=== PATIENT | male | born 1935 | race Caucasian/White ===

== ENCOUNTER → 2021-01-13 10:48 | Outpatient (BNVA) | payer MEDICARE, SELFPAY | PROVIDERS: PCP Internal Medicine; Visit Provider Urology | DX: N31.9 Neuromuscular dysfunction of bladder, unspecified (principal) | CPT/HCPCS: 51798; 81002; 99212 ==

== ENCOUNTER 2022-05-04 11:32 | Outpatient (AMB) | payer MEDICARE, SELFPAY ==
--- NOTE | 2022-05-03 14:38 | A.OFFVIS_ITS ---
Intake Intake Visit Reasons: 1 Year PVR Intake Note: Patient is present for pvr follow up Patient is currently taking finasteride Reports no medication changes Post Void Residual Reports: 120ml Greenhouse Transplanter Required: No Accompanied by: Self / Same As Patient Allergies No Known Allergies Allergy (Verified 05/03/22 14:39) HPI HPI Comments History of Present Illness Details Theron CANNON is a very pleasant male. They are a patient of Dr. Kaiser. They are seen in the office today for the following urologic conditions. - neurogenic bladder Doing well with CIC Needs refill on Levaquin - use for 4-5 days when has infection particularly when fishing in [place] Otherwise well Review in 12 months Neurogenic Bladder: They are here for further management for incomplete emptying neurogenic bladder - tolerating CIC - continue with finasteride Stable. Urinary retention initially found started 2015 Had prostate procedure in 2008 Has been on CIC 4x a day with good effect Occasional UTI. Imaging results 06/27 80 gm prostate, no hydro. Therapeutic plan Keep Abx and specimen cup with slip at home Start levaquin if symptomatic. [facility] Medical History Benign prostatic hyperplasia with lower urinary tract symptoms Feeling of incomplete bladder emptying Hyperlipidemia Neurogenic bladder Vitamin D deficiency Surgical History History of hernia repair History of prostate surgery Review of Systems Const Denies chills and Denies fever(s) Card Reports no additional complaints and Denies syncope Resp Denies cough GI Denies abdominal pain and Denies heartburn Reports as per HPI and Denies change in libido Neuro Denies syncope Psych Denies change in libido Endo Denies change in libido Physical Exam Const General: cooperative, healthy appearing, comfortable and no acute distress Orientation/consciousness: patient oriented x3 HEENT Face and sinus: Yes normal facial exam Mouth: moist mucous membranes Neck Neck: Yes normal visual inspection, Yes full ROM and Yes trachea midline Chest Chest palpation & inspection: normal inspection of the chest Resp Effort & Inspection: normal respiratory effort, able to speak in complete sentences and no respiratory distress GI Inspection: Yes normal to inspection Back/Spine/Pelvis Cervical Spine: normal cervical lordosis Thoracic/Lumbar Spine: thoracic and lumbar spine normal to inspection Skin General skin exam: no rashes or lesions noted Neuro General: patient oriented x3, gait normal, tone normal and moves all extremities Extrem General: Yes normal to inspection and Yes capillary refill normal Office Procedures Post Void Residual Post Residual Void Post Void Residual (PVR): 120 [id number] Void Residual by ultrasound Results AMB Urinalysis, Automated UA Leukoctes 15 Sofia/uL Last Edit by Lacey Rodriguez A on 05/04/22 11:42 UA Nitrite Negative Last Edit by Lacey Rodriguez A on 05/04/22 11:42 UA Urobilinogen 0.2 mg/dL Last Edit by Lacey Rodriguez A on 05/04/22 11:4 2 UA Protein 15 mg/dL Last Edit by Lacey Rodriguez A on 05/04/22 11:42 UA pH 5.5 Last Edit by Lacey Rodriguez A on 05/04/22 11:42 UA Blood 10 Donnell/uL Last Edit by Lacey Rodriguez A on 05/04/22 11:42 UA Specific Bowie 1.030 Last Edit by Lacey Rodriguez [facility] on 05/04/22 11: 42 UA Ketone Negative Last Edit by Lacey Rodriguez A on 05/04/22 11:42 UA Bilirubin 0 mg/dL Last Edit by Lacey Rodriguez [facility] on 05/04/22 11:42 UA Glucose 0 mg/dL Last Edit by Lacey Rodriguez A on 05/04/22 11:42 Results Reviewed Results Reviewed: Laboratory Last Values Urine pH (Auto) 5.5 05/04/22 11:41 Specific Bowie (Auto) 1.030 05/04/22 11:41 Urine Protein (Auto) 15 mg/dL 05/04/22 11:41 Glucose (UA)(Auto) 0 mg/dL 05/04/22 11:41 Urine Ketones (Auto) Negative 05/04/22 11:41 Urine Blood (Auto) 10 Donnell/uL 05/04/22 11:41 Urine Nitrite (Auto) Negative 05/04/22 11:41 Urine Bilirubin (Auto) 0 mg/dL 05/04/22 11:41 Urine Urobilinogen (Auto) 0.2 mg/dL 05/04/22 11:41 Leukocyte Esterase (Auto) 15 Sofia/uL 05/04/22 11:41 Assessment & Plan Assessment & Plan (1) Neurogenic bladder: Code(s): N31.9 - Neuromuscular dysfunction of bladder, unspecified Plan Twelve month follow-up Orders: Orders AMB Urinalysis Automated 05/04/22 Z13.9 - Encounter for screening, unspecified, N31.9 - Neuromuscular dysfunction of bladder, unspecified AMB Post Void Residual by ultrasound 05/04/22 N31.9 - Neuromuscular dysfunction of bladder, unspecified Patient Instructions: Imaging studies, laboratory and physical exam results were discussed and reviewed in detail. No major barriers to patient understanding were identified. An opportunity to ask questions regarding the treatment plan was provided. All questions were answered. The patient expressed understanding and agreement with the above treatment plan. The patient is aware they should contact our office by phone for worsening of their current condition or the appearance of new urologic symptoms. Compliance is encouraged with any medications and followup testing that is ordered. It is a privilege to participate in the urologic care of your patient. If you have any questions or concerns regarding treatment for the above conditions, or other urologic issues, please do not hesitate to contact me. The office telephone contact is [phone]. This note is constructed using voice recognition software. While every effort has been made to ensure accuracy electrical logging operator errors may have been included. Yours sincerely, Dr Vega Ward MD, [facility] - Urology Providers of Expert, Compassionate Care for the Genitourinary System Coding Level of Care Code Est Pt Level 4 (45397) Diagnoses Neurogenic bladder N31.9 CPT Codes Post Residual Void - PVR CPT Code: 79496-[id number] Void Residual by ultrasound ([id number])
== END 2022-05-04 12:20 | disposition home or self-care (01) ==
LOC: HO.HUSH 11:32
PROVIDERS: PCP Internal Medicine; Visit Provider Urology
DX: N31.9 Neuromuscular dysfunction of bladder, unspecified (principal)
CPT/HCPCS: 99213

== ENCOUNTER → 2022-05-04 11:32 | Outpatient (BNVA) | payer MEDICARE, SELFPAY | PROVIDERS: PCP Internal Medicine; Visit Provider Urology | DX: N31.9 Neuromuscular dysfunction of bladder, unspecified (principal) | CPT/HCPCS: 51798; 99212 ==

== ENCOUNTER 2023-05-04 09:21 | Outpatient (AMB) | payer MEDICARE, SELFPAY ==
--- NOTE | 2023-05-04 09:38 | MHC.OFFVIS ---
Intake Intake Visit Reasons: 1 year follow up Intake Note: Patient is present for Follow Up Urology Med: Finasteride Antibiotic Allergy: none Blood Thinner: None Allergies No Known Allergies Allergy (Verified 05/04/23 09:47) Medication List - Last Reconciled 05/04/23 by Vega Ward MD enalapril maleate 10 mg PO DAILY finasteride 5 mg PO DAILY finasteride 5 mg PO DAILY 90 days levetiracetam 750 mg PO BID levofloxacin 250 mg PO DAILY 7 days HPI HPI Comments History of Present Illness Details Theron CANNON is a very pleasant male. He is a patient of Dr. Kaiser. He is seen for the following urologic conditions. - neurogenic bladder Continues to do well with CIC On daily finasteride to allow easier catheterization Levaquin refilled to use when on fishing trips in [place] 12 month follow-up Neurogenic Bladder: They are here for further management for incomplete emptying neurogenic bladder - maintains CIC into the foreseeable future - tolerating CIC - continue with finasteride Stable. Urinary retention initially found started 2015 Had prostate procedure in 2008 Has been on CIC 4x a day with good effect Occasional UTI. Imaging results 06/27 80 gm prostate, no hydro. Therapeutic plan Keep Abx and specimen cup with slip at home Start levaquin if symptomatic. [facility] Medical History Benign prostatic hyperplasia with lower urinary tract symptoms Feeling of incomplete bladder emptying Hyperlipidemia Neurogenic bladder Vitamin D deficiency Surgical History History of hernia repair History of prostate surgery Review of Systems Const Denies chills and Denies fever(s) Card Reports no additional complaints and Denies syncope Resp Denies cough GI Denies abdominal pain and Denies heartburn Reports as per HPI and Denies change in libido Neuro Denies syncope Psych Denies change in libido Endo Denies change in libido Physical Exam Const General: cooperative, healthy appearing, comfortable and no acute distress Orientation/consciousness: patient oriented x3 HEENT Face and sinus: Yes normal facial exam Mouth: moist mucous membranes Neck Neck: Yes normal visual inspection, Yes full ROM and Yes trachea midline Chest Chest palpation & inspection: normal inspection of the chest Resp Effort & Inspection: normal respiratory effort, able to speak in complete sentences and no respiratory distress GI Inspection: Yes normal to inspection Back/Spine/Pelvis Cervical Spine: normal cervical lordosis Thoracic/Lumbar Spine: thoracic and lumbar spine normal to inspection Skin General skin exam: no rashes or lesions noted Neuro General: patient oriented x3, gait normal, tone normal and moves all extremities Extrem General: Yes normal to inspection and Yes capillary refill normal Results AMB Urinalysis, Automated UA Leukoctes 0 Sofia/uL Last Edit by TRACI Null on 05/04/23 09:49 UA Nitrite Negative Last Edit by Lacey Rodriguez A on 05/04/23 09:49 UA Urobilinogen 0.2 mg/dL Last Edit by BRISA NullA on 05/04/23 09:49 UA Protein 0 mg/dL Last Edit by Lacey Rodriguez A on 05/04/23 09:49 UA pH 5.5 Last Edit by Lacey Rodriguez A on 05/04/23 09:49 UA Blood 0 Donnell/uL Last Edit by Lacey Rodriguez Soha on 05/04/23 09:49 UA Specific Randolph 1.025 Last Edit by Lacey Rodriguez A on 05/04/23 09:49 UA Ketone Negative Last Edit by TRACI Null on 05/04/23 09:49 UA Bilirubin 0 mg/dL Last Edit by Lacey Rodriguez A on 05/04/23 09:49 UA Glucose 0 mg/dL Last Edit by Lacey Rodriguez A on 05/04/23 09:49 Results Reviewed Results Reviewed: Laboratory Last Values Urine pH (Auto) 5.5 05/04/23 09:48 Specific Randolph (Auto) 1.025 05/04/23 09:48 Urine Protein (Auto) 0 mg/dL 05/04/23 09:48 Glucose (UA)(Auto) 0 mg/dL 05/04/23 09:48 Urine Ketones (Auto) Negative 05/04/23 09:48 Urine Blood (Auto) 0 Donnell/uL 05/04/23 09:48 Urine Nitrite (Auto) Negative 05/04/23 09:48 Urine Bilirubin (Auto) 0 mg/dL 05/04/23 09:48 Urine Urobilinogen (Auto) 0.2 mg/dL 05/04/23 09:48 Leukocyte Esterase (Auto) 0 Sofia/uL 05/04/23 09:48 Assessment & Plan Assessment & Plan (1) Neurogenic bladder: Code(s): N31.9 - Neuromuscular dysfunction of bladder, unspecified Plan Twelve month follow-up Orders: Orders AMB Urinalysis Automated Today Z13.9 - Encounter for screening, unspecified Medications: New levofloxacin 250 mg PO DAILY 7 tabs 0RF 7 days Refilled finasteride 5 mg PO DAILY 90 tabs 3RF 90 days Patient Instructions: Imaging studies, laboratory and physical exam results were discussed and reviewed in detail. No major barriers to patient understanding were identified. An opportunity to ask questions regarding the treatment plan was provided. All questions were answered. The patient expressed understanding and agreement with the above treatment plan. The patient is aware they should contact our office by phone for worsening of their current condition or the appearance of new urologic symptoms. Compliance is encouraged with any medications and followup testing that is ordered. It is a privilege to participate in the urologic care of your patient. If you have any questions or concerns regarding treatment for the above conditions, or other urologic issues, please do not hesitate to contact me. The office telephone contact is [phone]. This note is constructed using voice recognition software. While every effort has been made to ensure accuracy feather trimmer errors may have been included. Yours sincerely, Dr Vega Ward MD, [facility] - Urology Providers of Expert, Compassionate Care for the Genitourinary System Coding Level of Care Code Est Pt Level 4 (37658) Diagnoses Neurogenic bladder N31.9
== END 2023-05-04 10:02 | disposition home or self-care (01) ==
PROVIDERS: Visit Provider Urology
DX: N31.9 Neuromuscular dysfunction of bladder, unspecified (principal)
CPT/HCPCS: 99213

== ENCOUNTER → 2023-05-04 09:21 | Outpatient (BNVA) | payer MEDICARE, SELFPAY | PROVIDERS: Visit Provider Urology | DX: N31.9 Neuromuscular dysfunction of bladder, unspecified (principal) | CPT/HCPCS: 99212 ==

== ENCOUNTER 2024-05-08 08:41 | Outpatient (AMB) | payer MEDICARE, SELFPAY ==
--- NOTE | 2024-05-08 08:58 | MHC.OFFVIS ---
Intake Visit Reasons: 1Y Follow Up-Neurogenic Bladder/CIC Intake Note: Patient is Present for Follow Up Neurogenic Bladder/CIC Urology Medication: Finasteride Antibiotic Allergies:None Blood Thinners: None Inspector Rough Castings Required: No Allergies No Known Allergies Allergy (Verified 05/08/24 09:00) Medication List - Last Reconciled 05/08/24 by Vega Ward MD enalapril maleate 10 mg PO DAILY finasteride 5 mg PO DAILY 90 days levetiracetam 750 mg PO BID levofloxacin 250 mg PO DAILY 7 days HPI Comments Details: Theron CANNON is a very pleasant male. He is a patient of Dr. Kaiser. He is seen for the following urologic conditions. - neurogenic bladder Continues to do well with CIC On daily finasteride to allow easier catheterization Had 1 episode of UTI in April Discussed Vit C 100mg daily Levaquin refilled to use when on fishing trips in [place] 12 month follow-up Neurogenic Bladder: They are here for further management for incomplete emptying neurogenic bladder - maintains CIC into the foreseeable future - tolerating CIC - continue with finasteride Stable. Urinary retention initially found started 2015 Had prostate procedure in 2008 Has been on CIC 4x a day with good effect Occasional UTI. Imaging results 06/27 80 gm prostate, no hydro. Therapeutic plan Keep Abx and specimen cup with slip at home Start levaquin if symptomatic. [facility] Medical History Benign prostatic hyperplasia with lower urinary tract symptoms Feeling of incomplete bladder emptying Hyperlipidemia Neurogenic bladder Vitamin D deficiency Surgical History History of hernia repair History of prostate surgery Review of Systems Const Denies chills and Denies fever(s) Card Reports no additional complaints and Denies syncope Resp Denies cough GI Denies abdominal pain and Denies heartburn Reports as per HPI and Denies change in libido Neuro Denies syncope Psych Denies change in libido Endo Denies change in libido Physical Exam Const General: cooperative, healthy appearing, comfortable and no acute distress Orientation/consciousness: patient oriented x3 HEENT Face and sinus: Yes normal facial exam Mouth: moist mucous membranes Neck Neck: Yes normal visual inspection, Yes full ROM and Yes trachea midline Chest Chest palpation & inspection: normal inspection of the chest Resp Effort & Inspection: normal respiratory effort, able to speak in complete sentences and no respiratory distress GI Inspection: Yes normal to inspection Back/Spine/Pelvis Cervical Spine: normal cervical lordosis Thoracic/Lumbar Spine: thoracic and lumbar spine normal to inspection Skin General skin exam: no rashes or lesions noted Neuro General: patient oriented x3, gait normal, tone normal and moves all extremities Extrem General: Yes normal to inspection and Yes capillary refill normal Assessment & Plan Assessment & Plan (1) Recurrent UTI (urinary tract infection): Code(s): N39.0 - Urinary tract infection, site not specified Category: Medical (2) Neurogenic bladder: Code(s): N31.9 - Neuromuscular dysfunction of bladder, unspecified Category: Medical Plan Twelve month follow-up Patient Instructions: Imaging studies, laboratory and physical exam results were discussed and reviewed in detail. No major barriers to patient understanding were identified. An opportunity to ask questions regarding the treatment plan was provided. All questions were answered. The patient expressed understanding and agreement with the above treatment plan. The patient is aware they should contact our office by phone for worsening of their current condition or the appearance of new urologic symptoms. Compliance is encouraged with any medications and followup testing that is ordered. It is a privilege to participate in the urologic care of your patient. If you have any questions or concerns regarding treatment for the above conditions, or other urologic issues, please do not hesitate to contact me. The office telephone contact is [phone]. This note is constructed using voice recognition software. While every effort has been made to ensure accuracy house designer errors may have been included. Yours sincerely, Dr Vega Ward MD, [facility] - Urology Providers of Expert, Compassionate Care for the Genitourinary System Coding Level of Care Code Est Pt Level 4 (99222) Diagnoses Recurrent UTI (urinary tract infection) N39.0 Neurogenic bladder N31.9
== END 2024-05-08 09:26 | disposition home or self-care (01) ==
PROVIDERS: PCP Internal Medicine; Visit Provider Urology
DX: N39.0 Urinary tract infection, site not specified (principal); N31.9 Neuromuscular dysfunction of bladder, unspecified
CPT/HCPCS: 99214

== ENCOUNTER → 2024-05-08 08:41 | Outpatient (BNVA) | payer MEDICARE, SELFPAY | PROVIDERS: PCP Internal Medicine; Visit Provider Urology | DX: N31.9 Neuromuscular dysfunction of bladder, unspecified (principal); N39.0 Urinary tract infection, site not specified | CPT/HCPCS: 99212 ==

== ENCOUNTER → 2024-08-13 08:14 | Outpatient (BNVA) | payer MEDICARE, SELFPAY | PROVIDERS: PCP Internal Medicine | DX: Z46.6 Encounter for fitting and adjustment of urinary device (principal); N31.9 Neuromuscular dysfunction of bladder, unspecified; N39.0 Urinary tract infection, site not specified ==

== ENCOUNTER 2025-05-08 09:16 | Outpatient (AMB) | payer MEDICARE, SELFPAY ==
--- NOTE | 2025-05-08 09:24 | A.OFFVIS_ITS ---
Intake Visit Reasons: 1y follow up Intake Note: Patient is present for 1y Follow Up Urology Medication: Finasteride Antibiotic Allergies:None Blood Thinners: None Edge Stainer Machine Required: No Allergies No Known Allergies Allergy (Verified 05/08/25 09:25) HPI Comments Details: Theron CANNON is a very pleasant male. He is a patient of Dr. Kaiser. He is seen for the following urologic conditions. - neurogenic bladder Twelve month follow-up Continues to do well with CIC On daily finasteride to allow easier catheterization - refill provided No UTIs reported Discussed Vit C 100mg daily with possible methenamine Levaquin refilled to use when on fishing trips in [place] Did encouraged to increase fluid intake Neurogenic Bladder: They are here for further management for incomplete emptying neurogenic bladder - maintains CIC into the foreseeable future - tolerating CIC - continue with finasteride Stable. Urinary retention initially found started 2015 Had prostate procedure in 2008 Has been on CIC 4x a day with good effect Occasional UTI. Imaging results 06/27 80 gm prostate, no hydro. Therapeutic plan Keep Abx and specimen cup with slip at home Start levaquin if symptomatic. [facility] Medical History Vitamin D deficiency Hyperlipidemia Feeling of incomplete bladder emptying Benign prostatic hyperplasia with lower urinary tract symptoms Neurogenic bladder Surgical History History of prostate surgery History of hernia repair Review of Systems Const Denies chills and Denies fever(s) Card Reports no additional complaints and Denies syncope Resp Denies cough GI Denies abdominal pain and Denies heartburn Reports as per HPI and Denies change in libido Neuro Denies syncope Psych Denies change in libido Endo Denies change in libido Physical Exam Const General: cooperative, healthy appearing, comfortable and no acute distress Orientation/consciousness: patient oriented x3 HEENT Face and sinus: Yes normal facial exam Mouth: moist mucous membranes Neck Neck: Yes normal visual inspection, Yes full ROM and Yes trachea midline Chest Chest palpation & inspection: normal inspection of the chest Resp Effort & Inspection: normal respiratory effort, able to speak in complete sentences and no respiratory distress GI Inspection: Yes normal to inspection Back/Spine/Pelvis Cervical Spine: normal cervical lordosis Thoracic/Lumbar Spine: thoracic and lumbar spine normal to inspection Skin General skin exam: no rashes or lesions noted Neuro General: patient oriented x3, gait normal, tone normal and moves all extremities Extrem General: Yes normal to inspection and Yes capillary refill normal Assessment & Plan Assessment & Plan (1) Neurogenic bladder: Code(s): N31.9 - Neuromuscular dysfunction of bladder, unspecified Category: Medical (2) Recurrent UTI (urinary tract infection): Code(s): N39.0 - Urinary tract infection, site not specified Category: Medical Plan Continue current treatment plan Medications: Refilled finasteride 5 mg PO DAILY 90 tabs 3RF 90 days N31.9 - Neuromuscular dysfunction of bladder, unspecified Patient Instructions: This note is constructed using voice recognition software. While every effort has been made to ensure accuracy typing bookkeeper errors may have been included. Imaging studies, laboratory and physical exam results were discussed and reviewed in detail. No major barriers to patient understanding were identified. An opportunity to ask questions regarding the treatment plan was provided. All questions were answered. The patient expressed understanding and agreement with the above treatment plan. The patient is aware they should contact our office by phone for worsening of their current condition or the appearance of new urologic symptoms. Compliance is encouraged with any medications and followup testing that is ordered. It is a privilege to participate in the urologic care of your patient. If you have any questions or concerns regarding treatment for the above conditions, or other urologic issues, please do not hesitate to contact me. The office telephone contact is [phone]. Sincerely, Dr Vega Ward MD, [facility] - Urology Compassionate Specialist Care for the Genitourinary System Coding Level of Care Code Est Pt Level 4 (44199) Complex EM visit Add On G2211 Diagnoses Neurogenic bladder N31.9 Recurrent UTI (urinary tract infection) N39.0
--- OUTSIDE RECORDS SUMMARY | 2025-05-08 09:45 | XMS_ITS | Encounter Summary ---
Author Organization [facility] Address [address] [place] [address] Care Team Providers Care Fnp Name Role Phone Aleks Kaiser Primary Care Provider Reason for Visit * Reason Onset Date Comments Actionable Finding 07/25/2024 Encounter Details Date Type Department Care Team (Late st Contact Info) Description 07/25/2024 Telephone [facility] - Actionable Findings [address] [place] [address] Ector Clarke RN Actionable Finding Social History Tobacco Use Types Packs/Day Years Used Date Smoking Tobacco: Never Passive Smoke Exposure: Never Smokeless Tobacco: Never Alcohol Use Standard Drinks/Week Comments Not Currently 0 (1 standard drink = 0.6 oz pur e alcohol) Sex and Gender Information Value Date Recorded Sex Assigned at Male 07/10/2024 12:34 PM EDT Legal Sex Male 12:09 AM EDT Gender Identity Not on file Sexual Orientation Not on file documented as of this encounter Miscellaneous Notes * Telephone Encounter - Ector Clarke RN - 07/25/2024 11:37 AM EDT The Actionable Findings Team performed a chart review of radiology studies below. There may not have been a telephone call or patient contact with this encounter. Actionable finding review of MRI Date of scan: 07/11/24 Location of scan: [place] Status of incidental finding: Patient aware; HCP aware Confirmed patient active in Practice; E-fax Result Ector Long RN at [phone] documented in this encounter Plan of Treatment Not on file documented as of this encounter Visit Diagnoses Not on filedocumented in this encounter Care Teams Fnp Relationship Specialty Start Date End Date Aleks Kaiser [address] [place] [id number] PCP - General Family Medicine 07/10/24 documented as of this encounter
== END 2025-05-08 09:57 | disposition home or self-care (01) ==
LOC: HO.HUSH 09:16
PROVIDERS: PCP Internal Medicine; Visit Provider Urology
DX: N31.9 Neuromuscular dysfunction of bladder, unspecified (principal); N39.0 Urinary tract infection, site not specified
CPT/HCPCS: 99214; G2211

== ENCOUNTER → 2025-05-08 09:16 | Outpatient (BNVA) | payer MEDICARE, SELFPAY | PROVIDERS: PCP Internal Medicine; Visit Provider Urology | DX: N39.0 Urinary tract infection, site not specified (principal); N31.9 Neuromuscular dysfunction of bladder, unspecified | CPT/HCPCS: 99212 ==